=== PATIENT | female | born 1935 | race Caucasian/White ===

== ENCOUNTER 2020-02-27 09:04 | Emergency (ER) | payer MEDICARE, SELFPAY ==
[2020-02-27] VITALS (16 sets, daily range): BP systolic 110–144; BP diastolic 60–91; PULSE 64–86; RESP 14–23; TEMP 35.9; O2SAT 85–97
--- NOTE | ~2020-02-27 | XR_ITS ---
XR chest 1V portable DATE: 02/27/2020 10:22 INDICATION: Shortness of breath TECHNIQUE: Portable AP chest on 02/27/2020 at 1023 hours COMPARISON: None FINDINGS: There is residual left apical aeration but the remainder of the left hemithorax is opacifie d, likely due to a combination of large pleural effusion and atelectasis/consolidation. There is patchy consolidating infiltrate in the right mid and lower lung zones. Heart size is not evaluated due to obliteration of the left cardiac margin by the opacification of th e mid and lower left hemithorax. There is aortic calcification. Surgical clips, right axillary area consistent with axillary node dissection. Diffuse osteopenia. Right rotator cuff atrophy. The left shoulder area is partially excluded. There is vertebroplasty of an upper lumbar vertebra. IMPRESSION: Opacification of the left mid and lower thorax, likely due to pleural effusion and atelec tasis/consolidation Patchy consolidation in the right mid and lower lung zones Reviewed, dictated and finalized at location [facility]. [employer] IMPRESSION: Opacification of the left mid and lower thorax, likely due to pleur al effusion and atelectasis/consolidation Patchy consolidation in the right mid and lower lung zones
--- NOTE | 2020-02-27 09:15 | ECG_ITS ---
Measurements Intervals [place] Rate: 70 P: 27 CA: 136 QRS: -35 QRSD: 122 T: 21 QT: 388 QTc: 419 Interpretive Statements SINUS RHYTHM LEFT AXIS DEVIATION RIGHT BUNDLE BRANCH BLOCK ABNORMAL ECG Electronically Signed On 02-27-2020 11:21:15 [employer]OTH [employer] RANGE OPERATOR by Gilberto Hou D.O.
--- NOTE | 2020-02-27 09:15 | PC.NURSE ---
PLACED ON 6L VIA NC AT THIS TIME FOR DECREASED O2 SATURATION.
--- NOTE | 2020-02-27 09:48 | PC.NURSE ---
VERBAL ORDER FROM [facility] FOR 4MG MORPHINE IVP STAT.
[2020-02-27] MEDS: MORPHINE SULFATE (*CRX) 4 MG/ML INJ IV PUSH (09:59)
[2020-02-27 10:25] LABS: Alanine Aminotransferase 9 U/L (4-35); Albumin Level 2.9 g/dL (3.5-5.1); Alkaline Phosphatase 165 U/L (38-126); Anion Gap 10 mmol/L (8-16); Aspartate Amino Transferase 27 U/L (14-36); Bilirubin,Total 1.2 mg/dL (0.2-1.3); Blood Urea Nitrogen 23 mg/dL (7-17); Calcium 8.5 mg/dL (8.4-10.2); Carbon Dioxide 25 mmol/L (22-30); Chloride 100 mmol/L (98-107); Estimated CRCL calculation 70 ml/min; Estimated Glomerular Filt Rate > 60; Glucose 95 mg/dL (65-105); Potassium 3.3 mmol/L (3.4-5.0); Sodium 135 mmol/L (137-145)
--- NOTE | 2020-02-27 10:25 | ED.GENADULT ---
HPI - General Adult General Chief complaint: Shortness of Breath/Dyspnea <Teena Horowitz MD - Last Filed: 02/28/20 07:11> Stated complaint: LOW O2 SATS <Teena Horowitz MD - Last Filed: 02/28/20 07:11> Time Seen by Provider: 02/27/20 09:15 <Teena Horowitz MD - Last Filed: 02/28/20 07:11> Source: patient and family <Teena Horowitz MD - Last Filed: 02/28/20 07:11> History of Present Illness HPI narrative: Patient is a 85 y/o female sent from [place] for low pulse ox today. Patient reportedly had pulse ox of 85% on RA earlier today. Patient admits that she was SOB, but she is not sure how long it's been going on. She has some cough. She also generalized pain due to metastatic cancer. She has history of metastatic carcinoid. She is undergoing palliative radiation at [place]. She is poor historian. <Teena Horowitz MD - Last Filed: 02/28/20 07:11> Related Data Home medications: Home Medications Medication Instructions Recorded Confirmed acetaminophen 500 mg PO Q6H PRN 02/27/20 02/27/20 aspirin 81 mg PO DAILY 02/27/20 02/27/20 atenolol 25 mg PO DAILY 02/27/20 02/27/20 bisacodyl 10 mg MI DAILY 02/27/20 02/27/20 docusate sodium 100 mg PO BID 02/27/20 02/27/20 lidocaine [Blue-Emu Lidocaine 1 patch TOPICAL DAILY 02/27/20 02/27/20 Patch] neomycin-polymyxin B-dexameth [Rogelio 1 drp OPHTHALMIC (EYE) DAILY 02/27/20 02/27/20 Poly Dex] ondansetron HCl [Zofran] 8 mg PO Q12H 02/27/20 02/27/20 oxycodone 5 mg PO Q4H PRN 02/27/20 02/27/20 polyethylene glycol 1 ea DAILY PRN 02/27/20 02/27/20 prochlorperazine maleate 10 mg PO BID 02/27/20 02/27/20 thiamine HCl (vitamin B1) [Vitamin 100 mg PO DAILY 02/27/20 02/27/20 B-1] tramadol 50 mg PO Q6H PRN 02/27/20 02/27/20 vitamin D3-folic acid 1 tablet PO DAILY 02/27/20 02/27/20 <Teena Horowitz MD - Last Filed: 02/28/20 07:11> Allergies/adverse reactions: Allergies Allergy/AdvReac Type Severity Reaction Status Date / Time shrimp Allergy Unknown Verified 02/27/20 10:12 Penicillins Allergy Unknown Unknown Uncoded 02/27/20 10:12 Sulfa (Sulfonamide Allergy Unknown Unknown Uncoded 02/27/20 10:12 Antibiotics) <Teena Horowitz MD - Last Filed: 02/28/20 07:11> Review of Systems Constitutional: Constitutional: Denies chills, Denies fever(s), Denies headache(s) and Reports weakness <Teena Horowitz MD - Last Filed: 02/28/20 07:11> Eyes: Eyes: Denies blurry vision <Teena Horowitz MD - Last Filed: 02/28/20 07:11> ENT: Denies headache(s) and Denies neck pain <Teena Horowitz MD - Last Filed: 02/28/20 07:11> Cardiovascular: Cardiovascular: Denies chest pain and Reports dyspnea <Teena Horowitz MD - Last Filed: 02/28/20 07:11> Respiratory: Respiratory: Denies cough and Denies dyspnea <Teena Horowitz MD - Last Filed: 02/28/20 07:11> Gastrointestinal: Gastrointestinal: Denies abdominal pain, Denies diarrhea, Denies nausea and Denies vomiting <Teena Horowitz MD - Last Filed: 02/28/20 07:11> Genitourinary: Genitourinary: Denies hematuria and Denies dysuria <Teena Horowitz MD - Last Filed: 02/28/20 07:11> Musculoskeletal: Musculoskeletal: Reports back pain, Reports myalgias and Denies neck pain <Teena Horowitz MD - Last Filed: 02/28/20 07:11> Neurologic: Denies headache(s) and Denies weakness <Teena Horowitz MD - Last Filed: 02/28/20 07:11> [facility] Social History Social History: Social History Gender identity (if verbalized by the patient): Female Spiritual care concerns: Yes <Teena Horowitz MD - Last Filed: 02/28/20 07:11> Exam Const: General: no acute distress and ill appearing <Teena Horowitz MD - Last Filed: 02/28/20 07:11> Nutritional Appearance: cachectic <Teena Horowitz MD - Last Filed: 02/28/20 07:11> Orientation/consciousness: oriented to person, oriented to place, oriented to time and patient oriented x3 <Teena Horowitz MD - Last Filed: 02/28/20 07:11> HENMT: Head: normocephali
--- NOTE | 2020-02-27 10:44 | PC.NURSE ---
REPORT TO SUSY MEANS SHE HAS ASSUMED PT CARE.
[2020-02-27 11:30] LABS: Basophils Percent Auto 0.1 % (0.2-1.2); Eosinophils Percent Auto 0.1 % (0-4.4); Hematocrit 32.2 % (37.0-47.0); Hemoglobin 10.5 g/dL (12.0-15.0); Immature Granulocyte Absolute 0.05 K/mm3 (0.00-0.031); Immature Granulocyte Percent A 0.5 % (0-0.5); Lymphocytes Absolute Auto 0.29 K/mm3 (0.9-3.2); Lymphocytes Percent Auto 2.8 % (18.3-44.2); Mean Corpuscular HGB Conc 32.6 g/dl (32-36); Mean Corpuscular Hemoglobin 30.1 pg (26-34); Mean Corpuscular Volume 92.3 fl (80-100); Mean Platelet Volume 11.2 fl (7.4-10.4); Monocytes Absolute Auto 0.2 K/mm3 (0.1-0.6); Monocytes Percent Auto 1.7 % (2.6-8.5); Neutrophils Absolute Auto 9.7 K/mm3 (1.3-6.7); Neutrophils Percent Auto 94.8 % (45.5-73.1); Platelet Count Result 91 k/mm3 (150-375); Red Blood Count 3.49 M/mm3 (4.2-5.4); Red Cell Distribution Width 17.9 % (11.5-14.5); White Blood Count 10.2 K/mm3 (4.5-10.0)
--- NOTE | 2020-02-27 19:15 | PCCCNOTE ---
Spoke at length, multiple times, with patient's daughter Urvashi who is the patient's POA. Urvashi will only accept [facility] for the patient and does not want her mother to return to the residential where she has been living. Extensive discussion about the purpose of hospice and ceasing the current radiation treatments for reduce patient's pain and focusing on oral and IV medication for pain control. Daughter is in agreement.. Spoke with María at [facility] who is gong to reach out to the daughter, evaluate that patient in the ED and meet with daughter to sign hospice contract should hospice be deemed appropriate by all parties. Updated Dr Galindo on current plans..
[2020-02-27] MEDS: HYDROmorphone HCL INJ (*CRX) 1 MG/ML SYR 0.5 MG IV PUSH (19:29)
--- NOTE | 2020-02-27 20:57 | PC.NURSE ---
niurka pérez called and will place patient on waitlist until covid test is returned. call [phone] with results
--- NOTE | 2020-02-27 21:11 | PC.NURSE ---
When received report was told Hospice from [facility] will be evaluating pt. Per Dr. Galindo at [facility]rx 2000 family and Hospice were meeting in the parking lot. Called Hospice from [facility], RN conveyor system operator will call ED.
[2020-02-27 21:22] LABS: SARS-CoV-2 RNA PCR Positive
--- NOTE | 2020-02-27 21:23 | PC.NURSE ---
hospice here for evaluation
--- NOTE | 2020-02-27 22:23 | PC.NURSE ---
Spoke to Torri in OB Registration, aware pt. hospice admission and given admission information.
== END 2020-02-27 22:23 | disposition hospice, inpatient (51) ==
PROVIDERS: Emergency Medicine; Emergency Provider Emergency Medicine; PCP General Practice
DX: U07.1 COVID-19 (principal); J96.01 Acute respiratory failure with hypoxia; G89.3 Neoplasm related pain (acute) (chronic); C79.9 Secondary malignant neoplasm of unspecified site; Z79.82 Long term (current) use of aspirin; I45.10 Unspecified right bundle-branch block
CPT/HCPCS: 36415; 71045; 80053; 85025; 87635; 93005; 96374; 96375; 99291; C9803; J1170; J2270; U0003

== ENCOUNTER 2020-02-27 22:22 | HOS | payer OTHER, SELFPAY ==
[2020-02-27 23:09] VITALS: BMI 18.1
[2020-02-27 23:10] VITALS: BP 152/65; PULSE 73; RESP 18; TEMP 36.4; O2SAT 90
[2020-02-28] MEDS: HYDROmorphone HCL INJ (*CRX) 1 MG/ML SYR IV PUSH (00:30)
[2020-02-28] MEDS: MORPHINE SULFATE INJ (*CRX) 50 MG in SODIUM CHLORIDE 0.9% IV 95 ML IV CONT (00:41)
[2020-02-28 01:06] VITALS: BMI 18.1
[2020-02-28] MEDS: HYOSCYAMINE SULFATE 0.125 MG TABLET SUBLINGUAL (12:31)
[2020-02-28 13:00] VITALS: BP 128/67; PULSE 93; RESP 14; TEMP 36.6; O2SAT 91
--- NOTE | 2020-02-28 14:41 | PM.IMHP ---
H&P: HPI History of Present Illness Date/Time: 02/28/20 14:41 Chief complaint: Respiratory Failure Narrative: Mayela Blake is a 85 year old female with metastatic lung cancer receiving palliative radiation is here for hypoxic and found to be COVID positive. In the ED, the initial plan was for her to be transferred to [place] but no bed was available. After multiple discussions, the family decided to proceed with comfort measures and the patient was admitted to the hospital under hospice care. She arouses but unable to provide history so majority of the history obtained from the chart. I called her but he was not able to answer questions appropriately. Left message with daughter. No notes from the [facility]. According the ED notes, the patient was sent from the [facility] for low pulse ox. Patient reportedly had pulse ox of 85% on RA on admission. Patient admitted that she was SOB, but she was unsure how long she had this symptom. She also has cough and generalized pain due to metastatic cancer. She has history of metastatic carcinoid. She is undergoing palliative radiation at [place]. She presented to the ED for evaluation. In the ED, her pulse ox was 85% and she was tachypneic at 23. CXR showing opacification of the left mid and lower thorax, likely due to pleural effusion and atelectasis/consolidation as well as patchy consolidation in the right mid and lower lung zones. After a lengthy discussion, the daughter (POA) agree for admission here for hospice. Patient was admitted and was started on Morphine drip. Patient was tested for COVID and this has returned positive. Review of Systems Review of Systems: ROS unobtainable: Yes unobtainable due to mental status PMFSH Past Medical History Medical History (Updated 02/28/20 @ 15:03 by Patricio Vivas MD) Metastatic cancer Pneumonia due to COVID-19 virus Surgical History Surgical History (Updated 02/28/20 @ 15:03 by Patricio Vivas MD) Surgical history unknown Family History Family History (Updated 02/28/20 @ 15:04 by Patricio Vivas MD) Other Family history unknown Social History Social History (Updated 02/28/20 @ 15:04 by Patricio Vivas MD) Social History: Patient resides at a [facility]. Gender identity (if verbalized by the patient): Female Spiritual care concerns: Yes Meds Home Medications and Allergies Home Medications Medication Instructions Recorded Confirmed Type acetaminophen 500 mg PO Q6H PRN 02/27/20 02/27/20 History aspirin 81 mg PO DAILY 02/27/20 02/27/20 History atenolol 25 mg PO DAILY 02/27/20 02/27/20 History bisacodyl 10 mg [place] DAILY 02/27/20 02/27/20 History docusate sodium 100 mg PO BID 02/27/20 02/27/20 History lidocaine [Blue-Emu Lidocaine 1 patch TOPICAL DAILY 02/27/20 02/27/20 History Patch] neomycin-polymyxin B-dexameth [Rogelio 1 drp OPHTHALMIC (EYE) DAILY 02/27/20 02/27/20 History Poly Dex] ondansetron HCl [Zofran] 8 mg PO Q12H 02/27/20 02/27/20 History oxycodone 5 mg PO Q4H PRN 02/27/20 02/27/20 History polyethylene glycol 1 ea DAILY PRN 02/27/20 02/27/20 History prochlorperazine maleate 10 mg PO BID 02/27/20 02/27/20 History thiamine HCl (vitamin B1) [Vitamin 100 mg PO DAILY 02/27/20 02/27/20 History B-1] tramadol 50 mg PO Q6H PRN 02/27/20 02/27/20 History vitamin D3-folic acid 1 tablet PO DAILY 02/27/20 02/27/20 History Allergies Allergy/AdvReac Type Severity Reaction Status Date / Time shrimp Allergy Unknown Verified 02/27/20 10:12 Penicillins Allergy Unknown Unknown Uncoded 02/27/20 10:12 Sulfa (Sulfonamide Allergy Unknown Unknown Uncoded 02/27/20 10:12 Antibiotics) Vital Signs Vital Signs - 24 hr 02/27/20 23:10 02/28/20 13:00 Temperature 97.6 F 97.8 F Pulse Rate 73 93 Respiratory Rate 18 14 Blood Pressure 152/65 H 128/67 Pulse Oximetry 90 91 Exam Narrative: Exam Narrative: AF 97.8 128/67 93 14 91% 6L Gen - thin elderly female resting quietly H
[2020-02-28] MEDS: LORazepam INJ (*CRX) 2 MG/ML VIAL 1 MG IV PUSH (15:13)
--- NOTE | 2020-02-29 08:15 | PM.DDS ---
Discharge Sum: Prov Provider Primary care physician: Juan Shore, Admitting provider: Ruben Vivas MD Attending physician on admission: mick Discharge Sum: Diag Contributing Factors (1) Acute respiratory failure with hypoxia: (2) Pneumonia due to COVID-19 virus: (3) Metastatic cancer: (4) Intractable pain: Discharge Sum: Summary Date and Time Date of admission: 02/27/20 22:22 Date of : 02/28/20 Time of : 18:54 Summary Details: 85 year old female with metastatic lung cancer receiving palliative radiation is here for hypoxic and found to be COVID positive. Family decided to proceed with hospice care. Patient was admitted to hospice care and started on morphine drip to control her pain. She peacefully on 02/28/20. Additional Data Family: attempt made Attending physician: Ruben Vivas MD Was code activated?: No Autopsy requested?: No Hospice patient?: Yes
== END 2020-02-28 18:54 | disposition expired | DRG 951 ==
PROVIDERS: Admitting Provider Internal Medicine; PCP General Practice; Visit Provider Internal Medicine
DX: Z51.5 Encounter for palliative care (principal); U07.1 COVID-19; J96.01 Acute respiratory failure with hypoxia; J12.89 Other viral pneumonia; C79.9 Secondary malignant neoplasm of unspecified site; G89.3 Neoplasm related pain (acute) (chronic); R32 Unspecified urinary incontinence; Z85.110 Personal history of malignant carcinoid tumor of bronchus and lung
CPT/HCPCS: A9270; J1170; J2060; J2270